=== PATIENT | female | born 1945 | race Two or more races ===

== ENCOUNTER → 2016-10-05 | Outpatient (CLI) | payer MEDICARE, MEDICAID ==
[2016-10-05 16:28] LABS: Basophils # (auto) 0.1 uL; Basophils % (auto) 0.6 % (0.0-2.0); CONDITION Y; Eosinophils # (auto) 0.5 uL; Eosinophils % (auto) 4.7 % (0.0-7.0); Hematocrit 37.3 % (36.0-46.0); Hemoglobin 12.2 g/dL (12.2-16.2); Lymphocytes # (auto) 3.2 uL; Lymphocytes % (auto) 28.7 % (10.0-50.0); Mean Corpuscular Hemoglobin 30.6 pg (28.0-32.0); Mean Corpuscular Hgb Conc. 32.8 g/dL (32.0-36.0); Mean Corpuscular Volume 93.3 fL (80.0-100.0); Monocytes # (auto) 0.4 uL; Monocytes % (auto) 3.9 % (0.0-12.0); Neutrophils % (auto) 62.1 % (37.0-80.0); Platelet Count (auto) 370 10^3/uL (140-450); Red Cell Distribution Width 14.3 % (11.6-16.0); White Blood Cell 11.2 10^3/uL (4.4-10.8)
== END | disposition home or self-care (01) ==
LOC: LAB 14:17
PROVIDERS: ATTEND Internal Medicine Cardiovascular Disease
DX: I10 Essential (primary) hypertension (principal); E78.00 Pure hypercholesterolemia, unspecified; K74.1 Hepatic sclerosis; E11.9 Type 2 diabetes mellitus without complications; E03.9 Hypothyroidism, unspecified; D64.9 Anemia, unspecified; E55.9 Vitamin D deficiency, unspecified; N39.0 Urinary tract infection, site not specified
CPT/HCPCS: 36415; 83036; 85025

== ENCOUNTER → 2017-04-11 | Outpatient (CLI) | payer MEDICARE, MEDICAID | END | disposition home or self-care (01) | LOC: Rad HDHVI 14:42 | PROVIDERS: ATTEND Internal Medicine Cardiovascular Disease | DX: M85.80 Other specified disorders of bone density and structure, unspecified site (principal); M19.012 Primary osteoarthritis, left shoulder; M48.02 Spinal stenosis, cervical region; M50.21 Other cervical disc displacement, high cervical region; I10 Essential (primary) hypertension; H60.90 Unspecified otitis externa, unspecified ear | CPT/HCPCS: 72125; 73030 ==

== ENCOUNTER 2022-12-15 18:27 | Inpatient (IN) | payer MEDICARE, MEDICAID ==
[~2022-12-15] VITALS: Ht 157.5 cm; Wt 57.4 kg
[2022-12-15 19:47] VITALS: PULSE 81; RESP 20; O2SAT 98
[2022-12-15 19:55] LABS: Basophils # (auto) 0.2 10 ^3/uL (0-0.2); Basophils % (auto) 0.9 % (0.0-2.0); Eosinophils # (auto) 1.1 10 ^3/uL (0-0.8); Eosinophils % (auto) 6.6 % (0.0-7.0); Hematocrit 39.8 % (36.0-46.0); Hemoglobin 13.1 g/dL (12.2-16.2); Lymphocytes # (auto) 2.5 10 ^3/uL (0.4-5.4); Lymphocytes % (auto) 14.8 % (10.0-50.0); Mean Corpuscular Hemoglobin 30.1 pg (28.0-32.0); Mean Corpuscular Hgb Conc. 32.9 g/dL (32.0-36.0); Mean Corpuscular Volume 91.4 fL (80.0-100.0); Monocytes # (auto) 1.1 10 ^3/uL (0-1.3); Monocytes % (auto) 6.5 % (0.0-12.0); Neutrophils # (auto) 12.2 10 ^3/uL (1.6-8.6); Neutrophils % (auto) 71.2 % (37.0-80.0); Red Blood Cells 4.35 10^6/uL (4.0-5.20); Red Cell Distribution Width 13.8 % (11.8-14.3); White Blood Cell 17.1 10^3/uL (4.4-10.8)
[2022-12-15 20:43] LABS: Alanine Aminotransferase 23 U/L (7-40); Albumin 4.3 g/dL (3.2-4.8); Alkaline Phosphatase 311 U/L (46-116); Anion Gap 10.6 (5-15); Aspartate Aminotransferase 22 U/L (13-40); Bilirubin, Total 0.5 mg/dL (0.2-1.0); Blood Urea Nitrogen 13 mg/dL (9-23); Calcium 9.6 mg/dL (8.5-10.1); Carbon Dioxide 20.4 mmol/L (20-30); Chloride 109 mmol/L (98-107); Glucose 105 mg/dL (74-106); Potassium 3.6 mmol/L (3.5-5.1); Sodium 140 mmol/L (136-145); Total Protein 7.5 g/dL (5.7-8.2)
[2022-12-15] MEDS ORDERED: DOCUSATE SOD 100 MG CAP PO PRN (21:00)
[2022-12-15] MEDS ORDERED: cefTRIAXone 1GM/50ML D5W 50 ML IV ONE (21:00)
[2022-12-15] MEDS ORDERED: AZITHROMYCIN 500MG/ 250ML 250 ML IV ONE (21:00)
[2022-12-15] MEDS ORDERED: ONDANSETRON HCL 4 MG/2 ML VIAL IV PRN (21:00)
[2022-12-15] MEDS ORDERED: ACETAMINOPHEN 325 MG TAB PO PRN (21:00)
[2022-12-15 21:07] LABS: Partial Thromboplastin Time 23.6 SEC (24.5-34.5); Prothrombin Time 10.5 sec (9.3-11.8)
[2022-12-15] MEDS ORDERED: diphenhdrAMINE HCL 50 MG/1 ML VL IV ONE (21:30)
[2022-12-15] MEDS ORDERED: MORPHINE SULFATE 4 MG/ML SYR/VIAL IV ONE (21:30)
[2022-12-15] MEDS ORDERED: METOCLOPRAMIDE HCL 5MG/ml INJ 2ml VIAL IV ONE (21:30)
[2022-12-15] MEDS ORDERED: LACTATED RINGER'S 1,500 ML IV ONE (21:45)
[2022-12-15] MEDS: FAMOTIDINE (10MG/ML) 2ML VL IV SCH (23:18)
[2022-12-16] MEDS ORDERED: IOHEXOL 350 MG/ML 100ML IJ ONE (00:26)
[2022-12-16 01:08] LABS: Urine Bacteria FEW /hpf (None Seen); Urine Blood Negative /uL (Negative); Urine Clarity Clear (Clear); Urine Color Yellow (Yellow); Urine Hyaline Cast FEW /lpf (0 - 2); Urine Mucus FEW (None Seen); Urine Protein, UAD Negative (Negative); Urine Specific Gravity 1.016 (1.001-1.035); Urine Urobilinogen Normal (Negative); Urine WBC 4 /hpf (0 - 5); Urine pH 6.5 (5.0-8.0)
[2022-12-16] MEDS: SODIUM CHLORIDE 0.9% 1,000 ML IV SCH ×2 (01:18→14:33)
[2022-12-16] MEDS ORDERED: NITROGLYCERIN 0.4 MG SL TAB SL PRN (02:00)
[2022-12-16] MEDS ORDERED: MORPHINE SULFATE INJ 2 MG/ml SYRG IV PRN (02:00)
[2022-12-16 05:58] LABS: Basophils # (auto) 0.1 10 ^3/uL (0-0.2); Basophils % (auto) 0.8 % (0.0-2.0); Eosinophils # (auto) 0.9 10 ^3/uL (0-0.8); Hemoglobin 11.5 g/dL (12.2-16.2); Lymphocytes # (auto) 3.4 10 ^3/uL (0.4-5.4); Lymphocytes % (auto) 22.4 % (10.0-50.0); Mean Corpuscular Hemoglobin 30.1 pg (28.0-32.0); Mean Corpuscular Volume 91.2 fL (80.0-100.0); Monocytes # (auto) 0.9 10 ^3/uL (0-1.3); Monocytes % (auto) 5.7 % (0.0-12.0); Neutrophils # (auto) 9.9 10 ^3/uL (1.6-8.6); Neutrophils % (auto) 65.1 % (37.0-80.0); Red Blood Cells 3.83 10^6/uL (4.0-5.20); Red Cell Distribution Width 13.5 % (11.8-14.3); White Blood Cell 15.2 10^3/uL (4.4-10.8)
[2022-12-16 05:59] LABS: Alanine Aminotransferase 17 U/L (7-40); Alkaline Phosphatase 257 U/L (46-116); Anion Gap 9.5 (5-15); BUN/Creatinine Ratio 12.2 (10.0-20.0); Blood Urea Nitrogen 10 mg/dL (9-23); Calcium 8.6 mg/dL (8.7-10.4); Carbon Dioxide 19.5 mmol/L (20-30); Chloride 110 mmol/L (98-107); Glucose 102 mg/dL (74-106); Potassium 3.3 mmol/L (3.5-5.1); Sodium 139 mmol/L (136-145)
[2022-12-16 06:00] LABS: Albumin 3.8 g/dL (3.2-4.8)
[2022-12-16 06:01] LABS: Aspartate Aminotransferase 23 U/L (13-40); Bilirubin, Total 0.4 mg/dL (0.2-1.0); Total Protein 6.5 g/dL (5.7-8.2)
[2022-12-16 07:35] VITALS: PULSE 83; RESP 14; O2SAT 97
[2022-12-16] MEDS: cefTRIAXone 1GM/50ML D5W 50 ML IV SCH (10:56)
[2022-12-16] MEDS: HYDROcodone-ACET 5/325MG TAB PO PRN ×4 (10:57→22:35)
[2022-12-16] MEDS: ASPirin 81 mg TAB PO SCH (10:57)
[2022-12-16] MEDS: FAMOTIDINE (10MG/ML) 2ML VL IV SCH ×2 (11:01→22:26)
[2022-12-16] MEDS: AZITHROMYCIN 500MG/ 250ML 250 ML IV SCH (11:12)
[2022-12-16] MEDS ORDERED: POTASSIUM CHL 20 Meq TABLET PO ONE (14:00)
[2022-12-16 17:49] LABS: COVID19 ANTIGEN SOFIA FIA NEGATIVE (NEGATIVE)
[2022-12-16] MEDS: hydrALAZINE HCL 20 MG/ML VL IV PRN (20:42)
[2022-12-16 20:52] VITALS: PULSE 85; RESP 19; O2SAT 96
[2022-12-16 21:45] VITALS: BP 158/62; PULSE 93; RESP 19; TEMP 98.1; O2SAT 98
[2022-12-16 22:00] VITALS: BP 158/62; PULSE 93; RESP 19; TEMP 98.1; O2SAT 98
[2022-12-16 22:05] VITALS: PULSE 92
[2022-12-16] MEDS ORDERED: ROSU1TAB14 PO (22:29)
[2022-12-16] MEDS ORDERED: GABA-339 PO (22:29)
[2022-12-16] MEDS ORDERED: FENO48TA13 PO (22:29)
[2022-12-16] MEDS ORDERED: ALBUAER3 IN (22:29)
[2022-12-16] MEDS ORDERED: AMLO1TAB21 PO (22:29)
[2022-12-16] MEDS ORDERED: DULO1CAP5 PO (22:29)
[2022-12-16] MEDS ORDERED: NITR100C6 PO (22:29)
[2022-12-16] MEDS ORDERED: OXY5T PO (22:29)
[2022-12-16] MEDS ORDERED: LACT10SO3 PO (22:29)
[2022-12-16] MEDS ORDERED: DULO60CA41 PO (22:29)
[2022-12-16] MEDS ORDERED: PANT40TA57 PO (22:29)
[2022-12-16] MEDS ORDERED: DOCU-94 PO (22:29)
[2022-12-16] MEDS ORDERED: ERGO1CAP23 PO (22:29)
[2022-12-16] MEDS ORDERED: POTA-220 (22:29)
[2022-12-16] MEDS ORDERED: NALO4SPR2 (22:30)
[2022-12-16] MEDS ORDERED: TICA90TA PO (22:32)
[2022-12-16] MEDS ORDERED: ASPI-325 PO (22:32)
[2022-12-17] MEDS: HYDROcodone-ACET 5/325MG TAB PO PRN ×3 (02:38→13:14)
[2022-12-17] MEDS: SODIUM CHLORIDE 0.9% 1,000 ML IV SCH ×2 (06:05→21:57)
[2022-12-17 08:20] VITALS: PULSE 65; PULSE 86; O2SAT 97
[2022-12-17] MEDS: DULoxetine HCL 30 MG CAP PO SCH ×2 (09:22→21:48)
[2022-12-17] MEDS: ASPirin 81 mg TAB PO SCH (09:23)
[2022-12-17] MEDS: TICAGRELOR 90 MG TAB PO SCH ×2 (09:26→21:47)
[2022-12-17] MEDS: FAMOTIDINE (10MG/ML) 2ML VL IV SCH ×2 (09:27→21:47)
[2022-12-17] MEDS: cefTRIAXone 1GM/50ML D5W 50 ML IV SCH (09:27)
[2022-12-17] MEDS: AZITHROMYCIN 500MG/ 250ML 250 ML IV SCH (12:52)
[2022-12-17 13:00] VITALS: BP 117/53; PULSE 92; RESP 16; TEMP 98.3; O2SAT 96
[2022-12-17] MEDS: GABAPENTIN 300 MG CAP PO SCH ×2 (14:35→21:48)
[2022-12-17] MEDS ORDERED: OLANZapine 5 MG TAB PO PRN (16:30)
[2022-12-17 17:00] VITALS: BP 113/58; PULSE 83; RESP 17; TEMP 97.2; O2SAT 97
[2022-12-17 20:00] VITALS: PULSE 71; O2SAT 97
[2022-12-17] MEDS: ATORVASTATIN 20 MG TAB PO SCH (21:48)
[2022-12-17 22:00] VITALS: BP 155/81; PULSE 61; RESP 17; TEMP 97.6; O2SAT 98
[2022-12-18] VITALS (8 sets, daily range): BP systolic 118–170; BP diastolic 62–93; PULSE 66–103; RESP 16–20; TEMP 98.2–98.3; O2SAT 94–98
[2022-12-18] MEDS: GABAPENTIN 300 MG CAP PO SCH ×3 (06:34→22:10)
[2022-12-18] MEDS: cefTRIAXone 1GM/50ML D5W 50 ML IV SCH (09:20)
[2022-12-18] MEDS: FAMOTIDINE (10MG/ML) 2ML VL IV SCH ×2 (10:14→22:10)
[2022-12-18] MEDS: AZITHROMYCIN 500MG/ 250ML 250 ML IV SCH (10:14)
[2022-12-18] MEDS: DULoxetine HCL 30 MG CAP PO SCH ×2 (10:15→22:10)
[2022-12-18] MEDS: ASPirin 81 mg TAB PO SCH (10:15)
[2022-12-18] MEDS: TICAGRELOR 90 MG TAB PO SCH ×2 (10:15→22:10)
[2022-12-18] MEDS: hydrALAZINE HCL 20 MG/ML VL IV PRN (11:15)
[2022-12-18] MEDS: HYDROcodone-ACET 5/325MG TAB PO PRN (12:12)
[2022-12-18] MEDS: SODIUM CHLORIDE 0.9% 1,000 ML IV SCH (16:00)
[2022-12-18] MEDS: ATORVASTATIN 20 MG TAB PO SCH (22:10)
[2022-12-19] VITALS (8 sets, daily range): BP systolic 134–165; BP diastolic 69–98; PULSE 84–87; RESP 16–20; TEMP 98.4–99; O2SAT 91–98
[2022-12-19] MEDS: GABAPENTIN 300 MG CAP PO SCH ×2 (06:00→13:44)
[2022-12-19] MEDS: FAMOTIDINE (10MG/ML) 2ML VL IV SCH (08:05)
[2022-12-19] MEDS: SODIUM CHLORIDE 0.9% 1,000 ML IV SCH (08:20)
[2022-12-19] MEDS: cefTRIAXone 1GM/50ML D5W 50 ML IV SCH (09:44)
[2022-12-19] MEDS: ASPirin 81 mg TAB PO SCH (10:08)
[2022-12-19] MEDS: DULoxetine HCL 30 MG CAP PO SCH (10:08)
[2022-12-19] MEDS: AZITHROMYCIN 500MG/ 250ML 250 ML IV SCH (10:08)
[2022-12-19] MEDS: TICAGRELOR 90 MG TAB PO SCH (10:09)
[2022-12-19] MEDS: hydrALAZINE HCL 20 MG/ML VL IV PRN (10:18)
[2022-12-19] MEDS ORDERED: LEVO500T91 PO (10:43)
== END 2022-12-19 19:30 | disposition home health service (06) | DRG 871 ==
LOC: EDBD 18:27 → ER 18:27 → TELE 12-16 02:03 → TELE-E-ADS 12-16 21:45
PROVIDERS: ADMIT Nurse Practitioner Family; ATTEND Family Medicine
DX: A41.9 Sepsis, unspecified organism (principal); J18.9 Pneumonia, unspecified organism; J96.91 Respiratory failure, unspecified with hypoxia; G45.9 Transient cerebral ischemic attack, unspecified; N39.0 Urinary tract infection, site not specified; F03.93 Unspecified dementia, unspecified severity, with mood disturbance; R47.81 Slurred speech; I10 Essential (primary) hypertension; E78.00 Pure hypercholesterolemia, unspecified; K21.9 Gastro-esophageal reflux disease without esophagitis; Z79.899 Other long term (current) drug therapy; Z80.0 Family history of malignant neoplasm of digestive organs; Z83.3 Family history of diabetes mellitus; Z86.73 Personal history of transient ischemic attack (TIA), and cerebral infarction without residual deficits; Z91.010 Allergy to peanuts; Z91.199 Patient's noncompliance with other medical treatment and regimen due to unspecified reason; Z91.018 Allergy to other foods
CPT/HCPCS: 36415; 70450; 70496; 71045; 80053; 81001; 82140; 83605; 83690; 83735; 84484; 85025; 85610; 85730; 87040; 87086; 87426; 92610; 96361; 96365; 96366; 96367; 96375; G0378; J0696; J3490